=== PATIENT | male | born 1935 | race Caucasian/White ===

== ENCOUNTER 2024-08-30 07:05 | Inpatient (IN) | payer MEDICARE, OTHER, SELFPAY ==
[2024-08-06 12:28] VITALS: BMI 30.5
[2024-08-06 13:55] LABS: Hematocrit 47.5 % (39.0-52.0); Mean Corp Hgb Conc. 33.7 g/dL (33.0-37.0); Mean Corpuscular Hgb 31.9 pg (27.0-31.0); Mean Corpuscular Volume 94.6 fL (80.0-94.0); Mean Platelet Volume 9.9 fL (7.4-10.4); Platelet Count 258 10^3/uL (130-400); Red Blood Cell Count 5.02 10^6/uL (4.70-6.10); Red Cell Dist. Width 13.4 % (11.5-14.5); White Blood Cell Count 6.8 10^3/uL (4.8-10.8)
[2024-08-06 14:04] LABS: ALT (SGPT) 28 U/L (0-50); AST (SGOT) 30 U/L (17-59); Albumin 4.6 g/dl (3.5-5.0); Alkaline Phosphatase 53 U/L (38-126); Blood Urea Nitrogen 18 mg/dl (9-20); Carbon Dioxide 26 mmol/L (22-30); Chloride 105 mmol/L (98-107); Estimated Creatinine Clearance 61 ml/min; Glucose 72 mg/dl (70-99); Potassium 5.1 mmol/L (3.5-5.1); Sodium 142 mmol/L (135-145); Total Bilirubin 0.9 mg/dl (0.2-1.3); Total Protein 7.1 g/dl (6.3-8.2); eGFR > 60.00
[2024-08-06 14:21] LABS: Glycohemoglobin (HgbA1c) 6.1 % (4.0-5.6)
[2024-08-30] VITALS (11 sets, daily range): BP systolic 82–128; BP diastolic 58–87; O2SAT 97; BMI 30.5
[2024-08-30] MEDS: TYLENOL 650 MG PO ×4 (08:01→23:19)
[2024-08-30] MEDS: NORMOSOL-R/PLASMALYTE-A 1000 IV ×2 (08:01→13:56)
[2024-08-30] MEDS: CELEBREX 200 MG PO (08:01)
[2024-08-30] MEDS: ROXICODONE 5 MG PO (11:58)
--- NOTE | 2024-08-30 12:49 | PTCARENOTE ---
1222: Patient arrived to 2S post R TKA. Full head to toe assessment completed. B/L LE neurovascular assessment completed. [place] on R knee clean dry and intact. Patient wearing 3L NC with SpO2 greater than 92%. IVF running per order. Call mcclendon
within reach and bed in lowest position. Patients at bedside.
--- NOTE | 2024-08-30 13:36 | W.PN.ORTHO ---
Today's Communication / Plan
-
D/c when clinically stable.
Assessment
.
Distal Motor Intact: Yes
Dressing:
Scant areas of incisional bleeding.
Assessment:
R knee OA s/p R TKA w/ Dr Hooker 08/30/24
- s/p L TSA 2016
DVT prophylaxis - Eliquis at modified dosing, b/l venous foot pumps
HTN - + parameters - monitor BP
NSVT and permanent A fib � monitor on tele
- Eliquis as stated above
- Continue Metoprolol
Non-ischemic CM, reduced EF - reduce hourly IVF rate to prevent fluid overload
CKD stage 3 - minimize nephrotoxins
BPH w/ LUTS - add daily Flomax - monitor voids
Hypercholesterolemia
Mild MR
Incidental infrarenal abdominal aortic aneurysm
PVD
Lumbar DDD
Prediabetes, A1c 6.1
Plan
.
Surgery / Date: R TKA w/ Dr Hooker 08/30/24
DVT Prophylaxis: Other (Eliquis )
Activity:
Out of bed.
PT/OT
Discharge Plan: Home w/ Outpatient PT
Subjective
.
.:
Patient resting comfortably in bed.
R knee pain minimal and currently well tolerated.
Denies any new significant complaints.
Vital Signs and Labs
.
Vital Signs and Labs:
Lab Results
08/06/24 12:37
08/06/24 12:37
Temp Pulse Resp BP Pulse Ox
98 F 79 18 128/87 94
08/30/24 07:52 08/30/24 07:52 08/30/24 07:52 08/30/24 07:52 08/30/24 07:52
Physical Exam
-
HEENT: No pallor, cyanosis, or jaundice. Throat clear.
NECK: Supple. No JVD.
RESPIRATORY: Lungs clear to auscultation.
CVS: Irregular irregular.
ABDOMEN: Soft, non-tender. No distension. Obese.
EXTREMITIES: Strength equal, no calf pain with palpation/dorsiflexion. Calves soft.
LSW: AOx3. No focal deficits. 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
[2024-08-30] MEDS: VITAMIN D3 (cholecalciferol) 25 MCG PO (13:56)
[2024-08-30] MEDS: FLOMAX 0.4 MG PO (13:56)
[2024-08-30] MEDS: ANCEF 5 IV (17:40)
[2024-08-30] MEDS: BACTROBAN 2% OINTMENT 1 APPLIC NASAL (19:55)
[2024-08-30] MEDS: ELIQUIS 2.5 MG PO (19:56)
[2024-08-30] MEDS: DECADRON 4 MG PO (19:56)
[2024-08-30] MEDS: COLACE 100 MG PO (19:56)
[2024-08-30] MEDS: SENOKOT 17.2 MG PO (19:56)
[2024-08-30] MEDS: LIPITOR 10 MG PO (22:07)
[2024-08-30] MEDS: TOPROL XL 75 MG PO (22:08)
[2024-08-31] MEDS: ANCEF 5 IV (01:01)
[2024-08-31] MEDS: ROXICODONE 5 MG PO ×2 (01:07→08:06)
[2024-08-31 03:53] VITALS: BP 111/49
[2024-08-31] MEDS: TYLENOL 650 MG PO ×2 (03:58→08:02)
[2024-08-31 07:00] VITALS: BP 121/73
[2024-08-31] MEDS: COLACE 100 MG PO (08:03)
[2024-08-31] MEDS: FLOMAX 0.4 MG PO (08:06)
[2024-08-31] MEDS: DECADRON 4 MG PO (08:07)
[2024-08-31] MEDS: VITAMIN D3 (cholecalciferol) 25 MCG PO (08:07)
[2024-08-31] MEDS: BACTROBAN 2% OINTMENT 1 APPLIC NASAL (08:07)
[2024-08-31] MEDS: ELIQUIS 2.5 MG PO (08:07)
[2024-08-31] MEDS: SENOKOT 17.2 MG PO (08:07)
--- NOTE | 2024-08-31 09:32 | W.PN.ORTHO ---
Today's Communication / Plan
-
D/c today since clinically stable, did well w/ PT and OT.
Assessment
.
Distal Motor Intact: Yes
Dressing:
Scant areas of old incisional bleeding.
Assessment:
R knee OA s/p R TKA w/ Dr Hooker 08/30/24
- s/p L TSA 2016
DVT prophylaxis - Eliquis at modified dosing, b/l venous foot pumps
HTN - + parameters - BPs overall stable
NSVT and permanent A fib � maintaining rate controlled a fib on tele
- Eliquis as stated above
- Continue Metoprolol
Non-ischemic CM, reduced EF - reduced hourly IVF rate to prevent fluid overload
CKD stage 3 - continue to minimize nephrotoxins
BPH w/ LUTS - voiding appropriately after Flomax x1
Hypercholesterolemia
Mild MR
Incidental infrarenal abdominal aortic aneurysm
PVD
Lumbar DDD
Prediabetes, A1c 6.1
Plan
.
Surgery / Date: R TKA w/ Dr Hooker 08/30/24
DVT Prophylaxis: Other (Eliquis )
Activity:
Out of bed.
PT/OT
Discharge Plan: Home w/ Outpatient PT
Subjective
.
.:
Patient resting comfortably in bed.
R knee pain minimal and currently well tolerated.
Denies any new significant complaints.
Eager for potential d/c today.
Vital Signs and Labs
.
Vital Signs and Labs:
Lab Results
08/06/24 12:37
08/06/24 12:37
Temp Pulse Resp BP Pulse Ox
97.9 F 92 18 121/73 95
08/31/24 07:00 08/31/24 07:00 08/31/24 07:00 08/31/24 07:00 08/31/24 07:00
Non-invasive Hgb result: 14.7
Physical Exam
-
HEENT: No pallor, cyanosis, or jaundice. Throat clear.
NECK: Supple. No JVD.
RESPIRATORY: Lungs clear to auscultation.
CVS: Irregular irregular.
ABDOMEN: Soft, non-tender. No distension. Obese.
EXTREMITIES: Mild expected post-surgical R knee edema. Strength equal, no calf pain with palpation/dorsiflexion. Calves soft.
LEASE ADMINISTRATOR: AOx3. No focal deficits. public health veterinarian grossly intact
[2024-08-31 09:43] VITALS: BP 110/67; PULSE 86; O2SAT 97
--- NOTE | 2024-08-31 09:45 | W.DS.TRANS ---
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
-
Discharge Instructions:
Sleep Apnea Risk Intermediate
Discharge Diagnosis/Procedures R knee OA s/p R TKA w/ Dr Hooker 08/30/24
Diet Regular
Activity As tolerated,With Walker
Driving Restrictions Not until seen by your Dr
Bathing Restrictions OK to Shower
Other Services PT
Wound Care Dressing to be removed 1 week post-surgery.
Specialty Instructions Weigh Daily
Instructions:
Stand-Alone Forms: Total Hip/Knee Replacement D/C
Changes to Home Medications: Yes
Discharge Medications:
DC Medications w/original date entered in [facility]
simvastatin 20 mg tablet 20 mg PO HS High cholesterol 03/04/22
apixaban 5 mg tablet (Eliquis) 5 mg PO BID Blood clot prevention/tx ##0 03/07/22
metoprolol succinate 50 mg tablet,extended release 24 hr 75 mg (1.5 x 50 mg) PO HS Blood pressure #45 tabs 03/07/22
ascorbic acid (vitamin C) 250 mg tablet (Vitamin C) 250 mg PO DAILY Supplement 11/28/22
calcium carbonate 500 mg PO DAILY Supplement 11/28/22
cholecalciferol (vitamin D3) 25 mcg (1,000 unit) tablet (Vitamin D3) 25 mcg PO DAILY Supplement 11/28/22
ginkgo biloba 40 mg tablet 40 mg PO DAILY Supplement 11/28/22
glucosamine sulf dipot chlr,msm,chond 550 mg-C 30 mg-yash 1 mg capsule (Glucosamine Chondroitin) 1 cap PO DAILY Supplement 11/28/22
multivitamin 1 tab PO DAILY Supplement 11/28/22
mupirocin 2 % topical ointment 1 applic topical BID 08/24/24
acetaminophen 500 mg tablet (Tylenol Extra Strength) 1,000 mg (2 x 500 mg) PO Q6H #90 tabs 08/31/24
apixaban 2.5 mg tablet (Eliquis) 2.5 mg PO BID #3 tabs 08/31/24
dexamethasone 4 mg tablet 4 mg PO Q12H Anti-inflammatory #7 tabs 08/31/24
docusate sodium 100 mg capsule 100 mg PO BID #30 caps 08/31/24
ondansetron HCl 4 mg tablet 4 mg PO Q6H PRN nausea and vomiting #30 tabs 08/31/24
oxycodone 5 mg tablet 5 - 10 mg (1 - 2 x 5 mg) PO Q6H PRN moderate-severe pain #30 tabs 08/31/24
sennosides 8.6 mg tablet (Senna Laxative) 17.2 mg (2 x 8.6 mg) PO BID #30 tabs 08/31/24
Home Medication Changes
acetaminophen 500 mg tablet (Tylenol Extra Strength) 1,000 mg (2 x 500 mg) PO Q6H #90 tabs 08/31/24
apixaban 2.5 mg tablet (Eliquis) 2.5 mg PO BID #3 tabs 08/31/24 - until POD 3
dexamethasone 4 mg tablet 4 mg PO Q12H Anti-inflammatory #7 tabs 08/31/24
docusate sodium 100 mg capsule 100 mg PO BID #30 caps 08/31/24
ondansetron HCl 4 mg tablet 4 mg PO Q6H PRN nausea and vomiting #30 tabs 08/31/24
oxycodone 5 mg tablet 5 - 10 mg (1 - 2 x 5 mg) PO Q6H PRN moderate-severe pain #30 tabs 08/31/24
sennosides 8.6 mg tablet (Senna Laxative) 17.2 mg (2 x 8.6 mg) PO BID #30 tabs 08/31/24
Pending Results: No
[2024-08-31 09:49] VITALS: BP 110/67; O2SAT 98
[2024-08-31 11:00] VITALS: BP 109/74
--- NOTE | 2024-08-31 12:02 | CM ---
Met with patient and .
Patient states has a outpatient script & is set up with [facility]
IA completed. IMM explained & signed.
PCP: Eligio Ratliff
Pharmacy: [facility], [address], [place]
PLAN: Discharge to home, outpatient therapy scheduled for at [facility].
[2024-08-31] MEDS: TYLENOL PO (12:17)
== END 2024-08-31 12:28 | disposition home or self-care (01) | DRG 470 ==
LOC: 2 SOUTH 07:05
PROVIDERS: ADMITTING PHYSICIAN Specialist; FAMILY PHYSICIAN Student in an Organized Health Care Education/Training Program; REFERRING PHYSICIAN Internal Medicine Cardiovascular Disease
PROC: 0SRC0J9 Replacement of Right Knee Joint with Synthetic Substitute, Cemented, Open Approach (ICD-10-PCS; 2024-08-30)
DX: M17.11 Unilateral primary osteoarthritis, right knee (principal); I48.21 Permanent atrial fibrillation; E78.00 Pure hypercholesterolemia, unspecified; E66.9 Obesity, unspecified; I12.9 Hypertensive chronic kidney disease with stage 1 through stage 4 chronic kidney disease, or unspecified chronic kidney disease; N18.30 Chronic kidney disease, stage 3 unspecified; Z79.01 Long term (current) use of anticoagulants; Z68.30 Body mass index [BMI] 30.0-30.9, adult
CPT/HCPCS: 36415; 73560; 80053; 83036; 85027; 87070; 97110; 97116; 97162; 97166; 97530; 97535; C1713; C1776

== ENCOUNTER 2024-09-06 08:05 | Emergency (ER) | payer MEDICARE, OTHER, SELFPAY ==
[2024-09-06 08:09] VITALS: BP 140/68
--- NOTE | 2024-09-06 08:37 | ED.GENMED ---
History of Present Illness
General
Chief Complaint: Post Operative Problem(s)
Source: patient
Time Seen by Provider: 09/06/24 08:25
History of Present Illness
History of Present Illness:
88yoM with a history of atrial fibrillation, hypertension, and hyperlipidemia presenting with his for evaluation of right leg pain. Patient underwent R total knee replacement on 08/30/[address] Hooker. He was discharged the following day. He
was doing well for the first few days but started to experience a burning pain on his right lateral thigh and calf over the past 2 days. He is unable to get in a comfortable position. He has been taking oxycodone 5mg and Tylenol without much relief.
He denies any fevers or chills. He is otherwise asymptomatic. He has a postop appt scheduled for next week. He is scheduled to have physical therapy at 11am today.
Past History
Past History
ED Past Medical History: Arrthythmia (afib), HTN and Hypercholesterolemia
ED Past Surgical History: Orthopedic
Social History
Tobacco: Non-smoker
Phy Exam
General Physical Exam
General Presentation: well appearing and no apparent distress
General age: appears stated age
General Skin: warm and dry
General Habitus: normal
General Mental: alert
ENT Exam
ENT Exam: normocephalic
Pulmonary Exam
Pulmonary Exam: no respiratory distress
[place] Coma Scale
Eye Opening: Spontaneous
Verbal Response: Oriented
Motor Response: Obeys Commands
GCS Total Score: 15
Musculoskeletal Exam
Musculoskeletal Exam: other (Ecchymosis and edema noted throughout R leg. Compartments soft. Postop dressing in place which is clean and dry. Patient able to flex R knee to 90 degrees. No tenderness in knee joint. 2+ DP pulse and sensation intact. )
Skin Exam
Skin Exam: warm/dry
Psychiatric Exam
Psychiatric Exam: normal mood/affect
Course
Orders/Labs/Results
Orders:
Orders
09/06/24 08:35
Acetaminophen [Tylenol] 1,000 mg PO NOW STA
Gabapentin [Neurontin] 100 mg PO NOW STA
Venous Doppler Lwr Ext Rt [US Periph Venous LOWER Ext RT] Urgent
Comment:
Reason For Exam: R leg swelling s/p R knee replacement
Vital Signs
Initial and Last Documented VS:
Initial Vital Signs
Temp Pulse Resp BP Pulse Ox
98.4 F 83 16 140/68 98
09/06/24 08:09 09/06/24 08:09 09/06/24 08:09 09/06/24 08:09 09/06/24 08:09
Last Documented Vital Signs
Temp Pulse Resp BP Pulse Ox
98.4 F 78 18 124/82 98
09/06/24 08:09 09/06/24 12:00 09/06/24 12:00 09/06/24 12:00 09/06/24 12:00
MDM/Problems Addressed
Differential Diagnosis Includes:
88yoM here with burning pain to his R lateral thigh/calf x 2 days. He is s/p R TKA on 08/30/24. Symptoms not controlled with Tylenol and oxycodone. VSS. He is well appearing in no distress. There is ecchymosis and swelling throughout R leg.
Compartments are soft. Patient able to flex R knee to 90 degrees. RLE is neurovascularly intact. Differential diagnosis includes but is not limited to: postoperative pain, neuropathy, DVT
Initial ED plan: Check venous duplex. Will give Tylenol and gabapentin for pain.
*Critical Care Note
Total Time (30-74mins, 75-104mins- exclusive of procedures): Not Applicable
Update Note
Update Note:
Venous duplex is negative for DVT. Pain is controlled on reassessment and is currently a 3/10 in severity. He is stable for discharge. Will provide a short term prescription for gabapentin. He was advised to f/u with his surgeon. He has a postop
appt scheduled in 1 week. Patient discharged in stable condition.
ED Attending Note
-
Portions of this chart may have been created with voice recognition software.� Occasional wrong word or��sound alike� substitutions may have occurred due to the inherent limitations of voice recognition software.
Discharge Plan
Departure
Patient Disposition: Home (Routine Discharge)
Date of Disposition: 09/06/24
Time of Disposition: 11:40
Patient with high blood pressure during this ER visit?: No
Discharge Problem:
Postoperative pain of extremity
Instructions: Postoperative Pain (DC)
Prescriptions:
New
gabapentin 100 mg capsule
100 mg PO BID PRN (Reason: pain) Qty: 14 0RF
No Action
simvastatin 20 MG tablet
20 mg PO HS
Eliquis 5 MG tablet
5 mg PO BID Qty: 0 0RF
metoprolol succinate 50 MG tablet extended release 24 hr
75 mg PO HS Qty: 45 0RF
multivitamin Tablet
1 tab PO DAILY
ginkgo biloba 40 mg Tablet
40 mg PO DAILY
calcium carbonate 500 mg calcium (1,250 mg) Tablet
500 mg PO DAILY
ascorbic acid (vitamin C) [Vitamin C] 250 mg Tablet
250 mg PO DAILY
cholecalciferol (vitamin D3) [Vitamin D3] 25 mcg (1,000 unit) Tablet
25 mcg PO DAILY
Glucosamine Chondroitin 550-30-1 mg Capsule
1 cap PO DAILY
mupirocin 2 % Ointment
1 applic TOPICAL BID
Patient Comments:
Patient strarted this treatment on 08/27/24 in the morning.
docusate sodium 100 mg Capsule
100 mg PO BID Qty: 30 0RF
dexamethasone 4 mg Tablet
4 mg PO Q12H Qty: 7 0RF
Rx Instructions:
Restart night of discharge and continue every 12 hours until finished.
Take with food.
Eliquis 2.5 mg Tablet
2.5 mg PO BID Qty: 3 0RF
Rx Instructions:
Cut 5 mg tab in 12/02 (= 2.5 mg) and take twice a day from 10/1 PM to 10/2 PM.
DO NOT resume Eliquis 5 mg twice a day until 10/3 AM.
oxycodone 5 mg Tablet
5 - 10 mg PO Q6H PRN (Reason: moderate-severe pain) Qty: 30 0RF
Rx Instructions:
1 tab for moderate pain, 2 if severe.
Dx total joint.
sennosides [Senna Laxative] 8.6 mg Tablet
17.2 mg PO BID Qty: 30 0RF
acetaminophen [Tylenol Extra Strength] 500 mg tablet
1,000 mg PO Q6H Qty: 90 0RF
Rx Instructions:
DO NOT exceed >4000 mg daily.
ondansetron HCl 4 mg tablet
4 mg PO Q6H PRN (Reason: nausea and vomiting) Qty: 30 0RF
Rx Instructions:
Prescribed pre-op by surgeon's office.
Referrals:
Marvin Moreno MD [Family Provider] -
Activity Restrictions/Additional Instructions:
Take Tylenol 650mg every 6 hours as needed. Take gabapentin as prescribed. Take oxycodone only as needed for severe breakthrough pain.
Please call your surgeon today for follow-up. Return to the ER with any new or worsening symptoms.
Interventions
Interventions:
*Risk Screen - Suicide Last Done: 09/06/24 08:09
*General Assessment Last Done: 09/06/24 08:55
*Neglect/Abuse Screening Last Done: 09/06/24 08:09
ED- Fall Risk Assessment Last Done: 09/06/24 12:05
*ED COVID-19 Vaccine History Last Done: 09/06/24 08:55
*Nursing Disposition Last Done: 09/06/24 12:05
ED-Skin Assessment Last Done: 09/06/24 08:30
Discharge Date and Time
Discharge Date/Time: 09/06/24 12:06
Print Language: [place]
[2024-09-06] MEDS: TYLENOL 1000 MG PO (08:52)
[2024-09-06] MEDS: NEURONTIN 100 MG PO (08:52)
[2024-09-06 10:31] VITALS: BP 111/62
[2024-09-06 12:00] VITALS: BP 124/82
== END 2024-09-06 12:06 | disposition home or self-care (01) ==
LOC: EMR 08:05
PROVIDERS: EMERGENCY PHYSICIAN Emergency Medicine; FAMILY PHYSICIAN Internal Medicine Cardiovascular Disease
DX: G89.18 Other acute postprocedural pain (principal); M79.604 Pain in right leg; R60.0 Localized edema; I10 Essential (primary) hypertension; E78.00 Pure hypercholesterolemia, unspecified; I48.91 Unspecified atrial fibrillation; Z96.651 Presence of right artificial knee joint
CPT/HCPCS: 99284; 93971